=== PATIENT | male | born 1985 | race Caucasian/White ===

== ENCOUNTER 2024-11-04 12:23 | Emergency (ER) | payer OTHER, SELFPAY ==
--- NOTE | 2024-11-04 | XR_ITS ---
Examination: MRI left ankle, without contrast Date and time of exam: November 04, 2024 at 1529 hrs. Indications: Running injury today, patient heard a pop in the ankle followed by pain Technique: Multiple axial sagittal and coronal images of the left ankle have been obtained with the Siemens high-resolution 1.5 Treasure MRI scanner. Images obtained include T2-weighted fat-suppressed sagittal sections, TR 3500, TE 46, T2 weighted coronal fat suppressed images, TR 3050, TE 84, T2-weighted transverse fat suppressed images, TR 3260, TE 63, proton density transverse images, TR 4720 TE 46, and T1 weighted coronal images, TR 560, TE 13. Findings: Complete tear of the Achilles tendon which is 8 cm from the calcaneal insertion Marked hemorrhage surrounding the Achilles tendon Moderate ankle effusion Marrow edema involving the fibular tip Dome the talus intact No ankle dislocation Anterior posterior inferior tibiofibular ligaments intact Tear of the anterior talofibular ligament Marked tendinitis flexor hallucis longus tendon Plantar fascia intact Negative for sinus Tarsi syndrome Impression: Complete tear of the Achilles tendon Bone contusion fibular tip Tear of the anterior talofibular ligament Marked tendinitis flexor hallucis longus tendon
[2024-11-04 12:54] VITALS: BP 167/102; PULSE 103; RESP 20; TEMP 37.1; O2SAT 96; BMI 29.9
--- NOTE | 2024-11-04 13:12 | PD.EDLOWEX ---
Lower Extremity Injury RME/HPI General Chief Complaint: Extremity Injury, Lower Stated Complaint: LEFT LOWER LEG PAIN Time Seen by Provider: 11/04/24 12:55 Arrival date/time: 11/04/24 12:23 This is a 39-year-old male that comes in with complaints of pain to Achilles on the left leg. Patient states he was about to start sprinting and felt a pop to the back of his leg. Patient suspects he has a Achilles tendon rupture. Patient denies any past medical history Limitations: no limitations Related Data Previous Rx's ?Medication ?Instructions ?Recorded cephalexin 500 mg capsule (Keflex) 500 mg PO TID #21 caps 05/01/19 ibuprofen 600 mg tablet (IBU) 600 mg PO QID PRN pain #30 tabs 05/01/19 hydrocodone 5 mg-acetaminophen 325 1 tab PO Q6H PRN pain #14 tabs 11/04/24 mg tablet ibuprofen 800 mg tablet 800 mg PO Q6H PRN pain #14 tabs 11/04/24 Allergies Allergy/AdvReac Type Severity Reaction Status Date / Time No Known Allergies Allergy Verified 05/01/19 18:03 Review of Systems Review of Systems Systems Reviewed: All systems reviewed, normal except as documented Past Medical History Past Medical History CARDIAC: Negative Congestive Heart Failure RESPIRATORY: Negative Chronic Obstructive Pulmonary Disease (COPD) GENITOURINARY: Negative Renal Disease ENDOCRINE: Negative Diabetes Mellitus Type 1 or Diabetes Mellitus Type 2 Social History SMOKING STATUS: Never smoker ED Exam General Limitations: Present no limitations General appearance: Present alert and in no apparent distress Head Head exam: Present atraumatic Eye Eye exam: Present normal appearance, PERRL and EOMI ENT ENT exam: Present normal exam, normal oropharynx and mucous membranes moist Neck Neck exam: Present normal inspection, full ROM and trachea midline Chest Chest inspection: Present normal inspection and symmetric chest wall rise Respiratory Respiratory exam: Present normal lung sounds bilaterally Cardiovascular Cardiovascular exam: Present regular rate and normal rhythm Abdominal Exam Abdominal exam: Present soft Extremities Exam Extremities exam: Present other (tenderness around left calf, inability to bend foot forward, pain location of achilles tendon ) Back Exam Back exam: Present normal inspection and full ROM Neurological Exam Neurological exam: Present alert, oriented X3 and CN II-XII intact Psychiatric Psychiatric exam: Present normal affect and normal mood Skin Skin exam: Present warm, dry, intact and normal color Course Quality Measures none Orders Category Date Time Status Crutches .NOW Care 12/07/24 16:37 Completed MRI Screening NOW Care 11/04/24 13:11 Completed MRI Screening NOW Care 11/04/24 13:36 Completed Splint / Immobilizer STAT Care 11/04/24 16:37 Completed MR ankle LT wo con Stat Exams 11/04/24 Completed Ibuprofen Tab [Motrin Tab] Med 11/04/24 13:11 Discontinued 800 mg PO X1 ONE Vital Signs Vital signs: Vital Signs Temperature 98.7 F 11/04/24 12:54 Pulse Rate 103 H 11/04/24 12:54 Respiratory Rate 20 11/04/24 12:54 Blood Pressure 167/102 H 11/04/24 12:54 Pulse Oximetry (%) 96 11/04/24 12:54 Oxygen Delivery Method Room Air 11/04/24 12:54 Extremity Injury, Lower MDM Narrative MDM Narrative:: MRI shows: Findings: Complete tear of the Achilles tendon which is 8 cm from the calcaneal insertion Marked hemorrhage surrounding the Achilles tendon Moderate ankle effusion Marrow edema involving the fibular tip Dome the talus intact No ankle dislocation Anterior posterior inferior tibiofibular ligaments intact Tear of the anterior talofibular ligament Marked tendinitis flexor hallucis longus tendon Plantar fascia intact Negative for sinus Tarsi syndrome Impression: Complete tear of the Achilles tendon Bone contusion fibular tip Tear of the anterior talofibular ligament Marked tendinitis flexor hallucis longus tendon Patient given IBUprofen for pain. Pt placed in splint. Pt told to follow up with in office as instructed. Patient data External records reviewed:: [facility] previous records Clinical information provided by:: patient Social determinants that could affect healthcare access:: none Patient has the following chronic illnesses:: none How is presenting disease/condition affected by chronic disease/condition?: no chronic disease Evaluation data The following diagnostics were reviewed and interpreted by me:: radiology exam(s) Lab and/or radiology exams considered but not ordered:: none Interpretation Summary: see note Medications / Prescriptions Medications or Prescriptions considered but not ordered:: none Medication administrations:: Medication Administration History Discontinued Medications Ibuprofen (Ibuprofen Tab 400 Mg Tablet) 800 mg PO X1 ONE Stop: 11/04/24 13:12 Last Admin: 11/04/24 13:25 Dose: 800 mg Documented By: ARF see mar Consultations Consultation(s) initiated? (list below): Yes Consultation #1 (Physician, Specialty, Details): 1300, will see patient at 3pm on Wednesday he would like pt to get an MRI in the ED before leaving Diagnosis Most likely diagnosis given after review of the tests above:: achilles tendon rupture Admission Indicated Admission indicated?: not indicated Admission Request Was there a request for admission?: No Disposition Plan Disposition Plan: Discharge Discharge Attestation Discharge Attestation: The patient and all family members were given an opportunity to ask questions and understood the discharge instructions. Discharge instructions specifically effects, indications for sooner follow up or return to the emergency department, and the expected course of current diagnosis. Patient condition: Stable Discharge Plan Plan Patient Disposition: HOME (Self Care) Patient condition on transfer: Stable Prescriptions/Referrals Prescriptions/Med Rec: New ibuprofen 800 mg tablet 800 mg PO Q6H PRN (Reason: pain) Qty: 14 0RF hydrocodone-acetaminophen 5-325 mg tablet 1 tab PO Q6H MDD 3 PRN (Reason: pain) Qty: 14 0RF No Action cephalexin [Keflex] 500 mg capsule 500 mg PO TID Qty: 21 0RF ibuprofen [IBU] 600 mg tablet 600 mg PO QID PRN (Reason: pain) Qty: 30 0RF Referrals: Rishi Cantu MD [Primary Care Provider] - In 1 week Problem List Clinical Impression: Achilles tendon rupture Patient/Caregiver Discharge Instructions Discharge Activity: activity as tolerated Education Materials: Achilles Tendon Rupture Additional Instructions: Dr. Moreno. [phone]. [facility] n. [facility] [id number]. Appointment is at 3 PM on November 06. Come back to the emergency room if symptoms change or worsen. Print Language: Yakut Stand Alone Forms: Kylie Award Info., Patient Portal Info Letter PA/INFORMATION DELIVERY ANALYST Supervising Physician PA/GRACE Supervising Physician: bib
[2024-11-04] MEDS: IBUPROFEN TAB 400 MG TABLET 800 MG PO (13:25)
== END 2024-11-04 17:30 | disposition home or self-care (01) ==
PROVIDERS: Emergency Provider Emergency Medicine; PCP Family Medicine
DX: S86.012A Strain of left Achilles tendon, initial encounter (principal); X58.XXXA Exposure to other specified factors, initial encounter
CPT/HCPCS: 29515; 73721; 99284; A9270